=== PATIENT | female | born 1990 | race Two or more races ===

== ENCOUNTER → 2021-10-05 | Emergency (ER) | payer OTHER ==
[~2021-10-05] VITALS: Ht 157.5 cm; Wt 61.7 kg
[~2021-10-05] MED LIST: AMOX-430 PO; AMOX/CLAVULANATE 875 MG TABLET ONE; AMOX/CLAVULANATE 875 MG TABLET PO ONE; IOHEXOL-300 100 ML VIAL IV ONE; IV NS 0.9% 1,000 ML BAG IV ONE; IV NS 0.9% 250 ML IV ONE; MORPHINE SULFATE INJ 2 MG/ML DISP.SYRIN IV ONE; MORPHINE SULFATE INJ 4 MG/ML DISP.SYRIN ONE; ONDANSETRON HCL/PF 4 MG/2 ML VIAL IVP ONE; ONDANSETRON HCL/PF 4 MG/2 ML VIAL ONE; POTASSIUM CHLORIDE 20 MEQ TAB.PRT.SR PO ONE
--- NOTE | 2021-10-05 20:01 | NUR ---
patient from home c/o abd pain, bloody bm starting today bright red. to bed 3. connected to monitor.
[2021-10-05 20:47] LABS: BASOPHILS # (AUTO) 0.1 K/uL (0.0-0.2); BASOPHILS % (AUTO) 0.7 % (0.0-2.0); EOSINOPHILS % (AUTO) 0.9 % (0.0-6.0); HEMATOCRIT 43 % (33-45); HEMOGLOBIN 14.4 g/dL (11.5-14.8); LYMPHOCYTES # (AUTO) 2.5 K/uL (0.8-4.8); LYMPHOCYTES % (AUTO) 27.2 % (20.0-44.0); MEAN CORPUSCULAR HGB CONC 33 g/dl (31.0-36.0); MEAN CORPUSCULAR VOLUME 91 fL (82-100); MONOCYTES # (AUTO) 0.7 K/uL (0.1-1.30); MONOCYTES % (AUTO) 7.2 % (2.0-12.0); NEUTROPHILS # (AUTO) 5.8 K/uL (1.8-8.9); PLATELET COUNT (AUTO) 239 K/uL (150-450); RED BLOOD CELL COUNT(AUTO) 4.74 MIL/uL (4.0-5.2); WHITE BLOOD COUNT (AUTO) 9.1 K/uL (4.3-11.0)
[2021-10-05 20:58] LABS: BILIRUBIN,URINE NEGATIVE (NEGATIVE); COLOR,URINE YELLOW (YELLOW); LEUKOCYTE ESTERASE ,URINE NEGATIVE (NEGATIVE); NITRITE, URINE NEGATIVE (NEGATIVE); PROTEIN,URINE NEGATIVE (NEGATIVE); UGLUCOSE NEGATIVE (NEGATIVE); UROBILINOGEN,URINE 0.2 EU/dL (0.2)
--- NOTE | 2021-10-05 20:58 | NUR ---
RECTAL EXAM AT BEDSIDE WITH FEMALE CHAPARONE.
--- NOTE | 2021-10-05 20:59 | NUR ---
OB SAMPLE COLLECTED BY DEREK VO AND SENT TO LAB
[2021-10-05 21:15] LABS: OCCULT BLOOD STOOL POSITIVE (NEGATIVE)
[2021-10-05 21:18] LABS: ALANINE AMINOTRANSFERASE 45 U/L (12-78); ALBUMIN 4.7 g/dL (3.4-5.0); ALKALINE PHOSPHATASE 75 U/L (46-116); ASPARTATE AMINOTRANSFERASE 18 U/L (15-37); BILIRUBIN,DIRECT 0.1 mg/dL (0.0-0.2); BILIRUBIN,TOTAL 0.8 mg/dL (0.2-1.0); CALCIUM, SERUM 9.1 mg/dL (8.5-10.1); CARBON DIOXIDE 26 mmol/L (21-32); CHLORIDE 102 mmol/L (98-107); CREATININE 0.7 mg/dL (0.6-1.3); GLUCOSE 86 mg/dL (74-106); LIPASE 76 U/L (73-393); POTASSIUM 3.1 mmol/L (3.5-5.1); SODIUM SERUM 140 mmol/L (136-145); TOTAL PROTEIN, SERUM 8.8 g/dL (6.4-8.2); UREA NITROGEN, BLOOD 10 mg/dL (7-18)
--- NOTE | 2021-10-05 21:36 | NUR ---
PATIENT BACK FROM CT
--- NOTE | 2021-10-05 22:40 | NUR ---
Patient discharged to home in stable condition. Written and verbal after care instructions given. Patient verbalizes understanding of instruction. RX GIVEN. IMAGING GIVEN. IV REMOVED. PATIENT AMBULATED OUT OF ER.
[2021-10-05 22:41] VITALS: BP 107/65
== END | disposition home or self-care (01) ==
LOC: ER 18:54
DX: K52.9 Noninfective gastroenteritis and colitis, unspecified (principal); R00.2 Palpitations; E87.6 Hypokalemia; R00.1 Bradycardia, unspecified; K92.1 Melena; Z98.890 Other specified postprocedural states
CPT/HCPCS: 36415; 71045; 74177; 80048; 80076; 81003; 82272; 83690; 84484; 84703; 85025; 85730; 93005; 96360; 99285; J2270; J2405; J7050; Q9967